=== PATIENT | male | born 1990 | race American Indian/Alaskan Native ===

== ENCOUNTER 2024-05-28 08:05 | Emergency (ER) | payer OTHER ==
[2024-05-28] MEDS ORDERED: BACITRACIN ZINC 15 GM TUBE TOPICAL OINTMENT ONE (08:55)
[2024-05-28 09:02] VITALS: BP 112/82; PULSE 70; RESP 16; TEMP 97.9; BMI 21.6
== END 2024-05-28 09:39 | disposition home or self-care (01) ==
LOC: JERFT 08:05
DX: S00.81XA Abrasion of other part of head, initial encounter (principal); S60.811A Abrasion of right wrist, initial encounter; Y04.8XXA Assault by other bodily force, initial encounter
CPT/HCPCS: 99283-25